=== PATIENT | male | born 1990 ===

== ENCOUNTER 2017-11-01 20:36 | Emergency (ER) | payer SELFPAY ==
[2017-11-01 20:54] VITALS: RESP 16; TEMP 98; O2SAT 98
[2017-11-01 21:24] LABS: URINE BILIRUBIN NEGATIVE (NEGATIVE); URINE BLOOD NEGATIVE (NEGATIVE); URINE CLARITY Clear (Clear); URINE COLOR Straw (YELLOW); URINE GLUCOSE (UA) NORMAL (Normal); URINE LEUKOCYTE ESTERASE NEG Leu/uL (Negative); URINE NITRATE NEGATIVE (NEGATIVE); URINE PROTEIN NEGATIVE (NEGATIVE); URINE UROBILINOGEN NORMAL mg/dL (0.2-1.0)
[2017-11-01] MEDS ORDERED: cefTRIAXone (Rocephin) 250 mg Inj IM STA (22:07)
--- NOTE | 2017-11-01 22:20 | C.PDOC ---
History Of Present Illness 27 years old male presents to ED with complaints of dysuria and penile discharge. Patient states he had sex with a new partner on new . Patient denies any other physical complaints. Chief Complaint (Nursing): Male Genitourinary History Per: Patient History/Exam Limitations: no limitations Onset/Duration Of Symptoms: Days Current Symptoms Are (Timing): Still Present Quality Of Discomfort: Unable To Describe Associated Symptoms: Urinary Symptoms Alleviating Factors: None Recent travel outside of the [place]: No Past Medical History Reviewed: Historical Data, Nursing Documentation, Vital Signs Vital Signs: Last Vital Signs Temp 98 F 11/01/17 20:52 Pulse 78 11/01/17 22:34 Resp 16 11/01/17 22:34 BP 129/79 11/01/17 22:34 Pulse Ox 98 11/02/17 02:13 - Medical History PMH: No Chronic Diseases Surgical History: No Surg Hx Family History: States: No Known Family Hx - Social History Hx Alcohol Use: No Hx Substance Use: No - Immunization History Hx Tetanus Toxoid Vaccination: No Hx Influenza Vaccination: No Hx Pneumococcal Vaccination: No Review Of Systems Genitourinary: Positive for: Dysuria, Penile Discharge. Negative for: Frequency , Incontinence Skin: Negative for: Rash Neurological: Negative for: Weakness, Numbness Psych: Negative for: Depression, Suicidal ideation Physical Exam - Physical Exam Appears: Non-toxic, Other (Awake and alert) Skin: Warm, Dry Head: Normacephalic Eye(s): bilateral: Normal Inspection Oral Mucosa: Moist Chest: Symmetrical, No Tenderness Cardiovascular: Rhythm Regular Respiratory: No Rales, No Rhonchi, No Wheezing Gastrointestinal/Abdominal: Soft, No Tenderness Neurological/Psych: Oriented x3, Normal Speech, Normal Cognition ED Course And Treatment O2 Sat by Pulse Oximetry: 98 (Room air ) Pulse Ox Interpretation: Normal Medical Decision Making Medical Decision Making: Administered Rocephin and Zithromax. Ordered Chlamydia/GC RNA and Urinalysis. Urine was normal. Disposition - Disposition Referrals: [facility] [Outside] Disposition: HOME/ ROUTINE Disposition Time: 22:18 Condition: STABLE Additional Instructions: Follow up with Clinic within 1-2 days. Return to ED if feel worse. Instructions: Nonspecific Urethritis in Men (ED) Forms: [email or web address] (Croatian) Print Language: [place] - Clinical Impression Clinical Impression: Urethritis - PA / CASHIER / Resident Statement MD/DO has reviewed & agrees with the documentation as recorded. - Scribe Statement The provider has reviewed the documentation as recorded by the Micheline Moreno All medical record entries made by the Micheline were at my direction and personally dictated by me. I have reviewed the chart and agree that the record accurately reflects my personal performance of the history, physical exam, medical decision making, and the department course for this patient. I have also personally directed, reviewed, and agree with the discharge instructions and disposition.
[2017-11-01 22:35] VITALS: BP 129/79; PULSE 78
== END 2017-11-01 22:34 | disposition home or self-care (01) ==
LOC: C.ER 20:36
DX: N34.2 Other urethritis (principal)
CPT/HCPCS: 81001; 87491; 87591; 96372; 99283; J0696